=== PATIENT | female | born 1950 | race Caucasian/White ===

== ENCOUNTER → 2020-10-04 | Outpatient (CLI) | payer MEDICARE, OTHER ==
--- NOTE | 2020-10-03 17:06 | HISTORY AND PHYSICAL ---
DATE OF SERVICE: COLONOSCOPY H AND P HISTORY OF PRESENT ILLNESS: The patient is a 70-year-old white female referred for screening colonoscopy. She is deemed to be of higher than average risk as her father was diagnosed with colon cancer in his late 50s or early 60s. She last accomplished colonoscopy 6 years ago, at which time she had one hyperplastic polyp removed from the rectum and otherwise unremarkable colonoscopy to the cecum. She reports no significant change in health history. She did undergo cataract surgery 3 weeks ago, which has been uneventful. She has had a past history of GERARD and BSO over 20 years ago for fibroids. She believes she may have had an appendectomy at that time and has had right carpal tunnel release nearly 10 years ago. PAST MEDICAL HISTORY: Significant for hyperlipidemia with no known history for coronary artery disease. SOCIAL HISTORY: She is retired, no past smoking history and no significant alcohol intake. FAMILY HISTORY: As noted in the HPI. REVIEW OF SYSTEMS: CONSTITUTIONAL: Denies night sweats, chills, fever, change in weight. GASTROINTESTINAL: She denies bright red blood per rectum, abdominal pain, diarrhea, constipation or change in bowel habits. CARDIOVASCULAR: Denies chest pain, syncope, presyncope, dyspnea on exertion or edema. PULMONARY: Denies cough, wheezing or shortness of breath. PHYSICAL EXAMINATION: GENERAL: Reveals a well-appearing white female in no acute distress. VITAL SIGNS: Blood pressure 130/86, weight 154. HEENT: Unremarkable. CHEST: Clear to auscultation. CARDIOVASCULAR: Reveals regular rate and rhythm without murmur, S3 or S4. ABDOMEN: Soft, supple without mass, organomegaly or tenderness. EXTREMITIES: Reveal no cyanosis, clubbing or edema. ASSESSMENT AND PLAN: The patient is set up for screening colonoscopy, deemed to be of higher than average risk due to family history of colon cancer, index case being her father diagnosed in his late 50s or early 60s. Prep instructions were given and questions were answered. I thank you for the referral of this pleasant lady. Job ID: [id number] DocumentID: [id number] Dictated Date: 10/03/2020 16:20:34 Certified Medication Technician Date: 10/03/2020 16:36:17 Dictated By: MARCO ROMERO MD
[~2020-10-04] MED LIST: GLUC-113 PO; HYDR-3720 PO; SERT25TA5 PO; VIT1TABL93 PO
--- NOTE | 2020-10-04 14:51 | Diagnostic Imaging Report ---
INDICATION: Postmenopausal screening COMPARISON: 10/31/2012 FINDINGS: AP Spine L1-L4: [BMD (g/cm2): 0.909] [T-Score: -2.4] [Z-Score: -0.9] [BMD Previous: 1.021] [BMD % Change: -11.0] LT Hip Neck: [BMD (g/cm2): 0.757] [T-Score: -2.0] [Z-Score: -0.4] LT Hip Total: [BMD (g/cm2):0.802] [T-Score:-1.6] [Z-Score: -0.2] [BMD Previous: 0.838] [BMD % Change: -4.3] RT Hip Neck: [BMD (g/cm2):0.687] [T-Score:-2.5] [Z-Score:-0.9] RT Hip Total: [BMD (g/cm2):0.751] [T-score:-2.0] [Z-Score:-0.6] [BMD Previous:0.801] [BMD % Change:-6.2] *Indicates significant change from prior examination based on 95% confidence level. World Health Organization criteria for BMD interpretation classify patients as Normal (T-score at or above -1.0), Osteopenic (T-score between -1.0 and -2.5) or Osteoporotic (T-score at or below -2.5). LIMITATIONS AND MODIFICATION: None. FRACTURE RISK (FRAX SCORE): The ten year probability of (%): Major Osteoporotic Fracture: [24.1] Hip Fracture: [6.7] IMPRESSION: 1. Osteoporosis. 2. Bone mineral density has decreased by a statistically significant amount, as detailed above. 3. See below National Osteoporosis Foundation guidelines on when to potentially initiate pharmacologic therapy. Based on the National Osteoporosis Foundation Guidelines, pharmacologic treatment should be initiated in any of the following, unless clinical conditions suggest otherwise: * Any patient with prior fragility fracture of the hip or vertebrae. A spine fracture indicates 5X risk for subsequent spine fracture and 2X risk for subsequent hip fracture. * Osteoporosis (T-score <-2.5). * Postmenopausal women and men age 50 and older with low bone mass/osteopenia (T-score between -1.0 and -2.5) by DXA and 10-year major osteoporotic fracture greater than 20% or a 10-year probability of hip fracture greater than 3%. These fracture risks are supplied above in the FRAX score, if applicable. * Clinician judgement and/or patient preferences may indicate treatment for people with 10-year fracture probabilities above or below these levels. Dictated by: Dictated on workstation # [id number]
--- NOTE | 2020-10-05 13:14 | Diagnostic Imaging Report ---
INDICATION: 2-D and 3-D digital screening with CAD. COMPARISON: 07/2017, 08/2014 and 10/2013. FINDINGS: Breast parenchymal pattern is heterogeneously dense which can limit mammographic sensitivity. No identifiable mass, architecture distortions, spiculated lesion or suspicious calcifications. A few calcifications bilaterally stable and benign. IMPRESSION: Stable benign findings BI-RADS Category 2 ACR BI-RADS Category 2: Benign findings. Result letter will be mailed to the patient. Note: At least 10% of breast cancer is not imaged by mammography. Dictated by: Dictated on workstation # [id number]
== END ==
LOC: RAD 13:12
PROVIDERS: ATTEND Family Medicine
DX: Z12.31 Encounter for screening mammogram for malignant neoplasm of breast (principal); Z13.820 Encounter for screening for osteoporosis; M81.0 Age-related osteoporosis without current pathological fracture; E55.9 Vitamin D deficiency, unspecified; Z78.0 Asymptomatic menopausal state
CPT/HCPCS: 77063; 77067; 77080

== ENCOUNTER 2020-10-13 05:35 | Outpatient (CLI) | payer MEDICARE, OTHER ==
[~2020-10-13] VITALS: Ht 160 cm; Wt 69.9 kg
[2020-10-13] MEDS ORDERED: CETI10TA17 PO (14:11)
[2020-10-13] MEDS ORDERED: CYAN250010 PO (14:11)
[2020-10-13] MEDS ORDERED: FLAX100032 PO (14:11)
[2020-10-13] MEDS ORDERED: CALC250T2 PO (14:11)
[2020-10-13] MEDS ORDERED: CHOL200012 PO (14:11)
[2020-10-13] MEDS ORDERED: PRAV10TA PO (14:11)
== END 2020-10-13 14:52 | disposition home or self-care (01) ==
LOC: PREOP 05:35
PROVIDERS: ATTEND Internal Medicine
DX: Z01.818 Encounter for other preprocedural examination (principal)

== ENCOUNTER 2020-10-28 08:34 | Day surgery (SDC) | payer MEDICARE, OTHER ==
[~2020-10-28] VITALS: Ht 160 cm; Wt 70.0 kg
[2020-10-28] VITALS (9 sets, daily range): BP systolic 90–135; BP diastolic 53–84
[~2020-10-28 08:34] MED LIST changes: +CALC250T2 PO; +CETI10TA17 PO; +CHOL200012 PO; +CYAN250010 PO; +FLAX100032 PO; +PRAV10TA PO
[2020-10-28] MEDS ORDERED: LACTATED RINGERS 1,000 ML IV STA (08:43)
[2020-10-28] MEDS ORDERED: LIDOCAINE JELLY 2% 6 ML SYRINGE MM PRN (08:45)
--- NOTE | 2020-10-28 09:13 | Pre-Op Note & Conscious Sedat ---
Pre-Operative Progress Note H&P Reviewed The H&P was reviewed, patient examined and no changes noted. Date H&P Reviewed: Oct 28, 2020 Time H&P Reviewed: 09:12 Conscious Sedation Pre-Proced ASA Score 2 For ASA 3 and 4: Consider anesthesia and medical clearance. Also, for patients with a history of failed moderate sedation consider anesthesia. Airway Lungs Heart ASA score ASA 1: a normal healthy patient ASA 2: a patient with a mild systemic disease (mid diabetes, controlled hypertension, obesity ASA 3: a patient with a severe systemic disease that limits activity (angina, COPD, prior Myocardial infarction) ASA 4: a patient with an incapacitating disease that is a constant threat to life (CHF, renal failure) ASA 5: a moribund patient not expected to survive 24 hrs. (ruptured aneurysm) ASA 6: a declared brain- patient whose organs are being harvested. For emergent operations, add the letter E after the classification Mallampati Classification Grade 2 Sedation Plan Analgesia, Amnesia, Plan communicated to team members, Discussed options with patient/fam, Discussed risks with patient/fam The patient is an appropriate candidate to undergo the planned procedure, sedation, and anesthesia. The patient immediately re-assessed prior to indication. MARCO ROMERO MD Oct 28, 2020 09:13
[2020-10-28] MEDS ORDERED: PROPOFOL INJECTION 50 ML IV ONE (09:43)
[2020-10-28] MEDS ORDERED: MIDAZOLAM 2 MG/2 ML (VERSED) VIAL ONE (09:43)
--- NOTE | 2020-10-28 11:05 | Anesthesia-General Post-Op ---
MAC Patient Condition Mental Status/LOC: Same as Preop Cardiovascular: Satisfactory Nausea/Vomiting: Absent Respiratory: Satisfactory Pain: Controlled Complications: Absent Post Op Complications Complications None Follow Up Care/Instructions Patient Instructions None needed. Anesthesiology Discharge Order Discharge Order Patient is doing well, no complaints, stable vital signs, no apparent adverse anesthesia problems. No complications reported per nursing. CELESTINE METZGER CRNA Oct 28, 2020 11:05
--- NOTE | 2020-10-28 19:12 | OPERATIVE REPORT ---
DATE OF SERVICE: COLONOSCOPY SUMMARY INDICATION FOR THE PROCEDURE: Screening colonoscopy, family history of colon cancer, index case being her father diagnosed in his late 50s or early 60s. DESCRIPTION OF PROCEDURE: The patient was placed in the left lateral decubitus position. Prior to undergoing colonoscopy, digital rectal evaluation was performed. Anal sphincter tone was normal and the perianal reflexes intact. No abnormalities were noted on digital inspection of anal canal or distal rectal vault. The colonoscope was inserted in the rectum and under direct visualization advanced to cecum. The cecum was identified by identification of the ileocecal valve and cecal strap. Photographic documentation was obtained. Careful inspection was made as colonoscope withdrawn. Quality of prep was good. FINDINGS: There was no evidence for internal or external hemorrhoids and the rectum, sigmoid colon, descending colon, splenic flexure, transverse colon, hepatic flexure, ascending colon and cecum were unremarkable. ASSESSMENT: No evidence for neoplasia or diverticular disease. ASSESSMENT: Normal colonoscopy to the cecum under good prep conditions. Considering family history, I would advocate consideration for repeat screening colonoscopy in 5 years. Job ID: [id number] DocumentID: [id number] Dictated Date: 10/28/2020 10:33:27 Supervisory Training Specialist Date: 10/28/2020 14:53:26 Dictated By: MARCO ROMERO MD
--- NOTE | 2020-10-31 13:18 | HISTORY AND PHYSICAL ---
DATE OF SERVICE: 10/28/2020 COLONOSCOPY SUMMARY INDICATION FOR THE PROCEDURE: Screening colonoscopy, family history of colon cancer, index case being her father diagnosed in his late 50s or early 60s. DESCRIPTION OF PROCEDURE: The patient was placed in the left lateral decubitus position. Prior to undergoing colonoscopy, digital rectal evaluation was performed. Anal sphincter tone was normal and the perianal reflexes intact. No abnormalities were noted on digital inspection of anal canal or distal rectal vault. The colonoscope was inserted in the rectum and under direct visualization advanced to cecum. The cecum was identified by identification of the ileocecal valve and cecal strap. Photographic documentation was obtained. Careful inspection was made as colonoscope withdrawn. Quality of prep was good. FINDINGS: There was no evidence for internal or external hemorrhoids and the rectum, sigmoid colon, descending colon, splenic flexure, transverse colon, hepatic flexure, ascending colon and cecum were unremarkable. ASSESSMENT: No evidence for neoplasia or diverticular disease. ASSESSMENT: Normal colonoscopy to the cecum under good prep conditions. Considering family history, I would advocate consideration for repeat screening colonoscopy in 5 years. Job ID: [id number] DocumentID: [id number] Dictated Date: 10/28/2020 10:33:27 Mineralogy Professor Date: 10/28/2020 14:53:26 Dictated By: MARCO ROMERO MD <Dictated by MARCO ROMERO MD> <Electronically signed by MARCO ROMERO MD> 10/29/201955 [facility]
== END 2020-10-28 11:30 | disposition home or self-care (01) ==
LOC: ENDO 08:34
PROVIDERS: ATTEND Internal Medicine
DX: Z12.11 Encounter for screening for malignant neoplasm of colon (principal); I25.10 Atherosclerotic heart disease of native coronary artery without angina pectoris; Z80.0 Family history of malignant neoplasm of digestive organs; Z79.899 Other long term (current) drug therapy

== ENCOUNTER → 2021-11-09 | Outpatient (CLI) | payer MEDICARE, OTHER ==
--- NOTE | 2021-11-10 08:59 | Diagnostic Imaging Report ---
Indication: Routine screening. Comparison is made with prior mammogram 10/04/2020 and 08/02/2017. 2-D and 3-D bilateral screening mammography was performed with CAD. CAD is utilized. The current study was also evaluated with a Computer Aided Detection (CAD) system. Both breasts are heterogeneously dense, limiting the sensitivity of mammography. Scattered benign calcifications are noted in both breasts. Overall parenchymal pattern is stable. No mass or malignant-appearing microcalcifications are seen. Axillae are unremarkable. IMPRESSION: BI-RADS Category 2 No mammographic features suspicious for malignancy are identified. ACR BI-RADS Category 2: Benign findings. Result letter will be mailed to the patient. Note: At least 10% of breast cancer is not imaged by mammography. Dictated by: Dictated on workstation # [id number]
== END ==
LOC: RAD 14:51
PROVIDERS: ATTEND Family Medicine
DX: Z12.31 Encounter for screening mammogram for malignant neoplasm of breast (principal)
CPT/HCPCS: 77063; 77067

== ENCOUNTER → 2022-12-05 | Outpatient (CLI) | payer MEDICARE, OTHER ==
--- NOTE | 2022-12-05 12:26 | Diagnostic Imaging Report ---
INDICATION: Routine screening. COMPARISON: 11/09/2021 and 10/04/2020. TECHNIQUE: 2D and 3D bilateral screening mammography was performed with CAD. FINDINGS: Both breasts are heterogeneously dense, limiting the sensitivity of mammography. The overall parenchymal pattern is stable. No mass or malignant-appearing microcalcifications are seen. There are benign calcifications bilaterally. The axillae are unremarkable. IMPRESSION: No mammographic features suspicious for malignancy are identified. ACR BI-RADS Category 2: Benign findings. Result letter will be mailed to the patient. Note: At least 10% of breast cancer is not imaged by mammography. Dictated by: Dictated on workstation # [id number]
== END ==
LOC: RAD 10:40
PROVIDERS: ATTEND Family Medicine
DX: Z12.31 Encounter for screening mammogram for malignant neoplasm of breast (principal)
CPT/HCPCS: 77063; 77067